=== PATIENT | male | born 1945 | race Caucasian/White ===

== ENCOUNTER → 2017-02-24 | Outpatient (CLI) | payer MEDICARE, OTHER ==
[~2017-02-24] MED LIST: ASPIRIN PO; B COMPLEX1 EACH PO; CERTAGEN PO; COZAAR25 MG PO; FLOMAX0.4 MG PO; GLUCOPHAGE500 MG PO; HYDROCHLOROTH12.5 M1 PO; LISINOPRIL PO; MULTIVITAMINS1 EAC4 PO; PRAVASTATIN SOD40 MG PO; TOPROL XL PO; ZOCOR PO
--- NOTE | ~2017-02-24 | NM4 ---
[facility] A Service of [facility] RADIOLOGY TEXT RESULTS PATIENT: SEAN HARKINS LOCATION: [facility] : 45 UNIT #: [id number] AGE: [address]: Juan Charles DPM SEX: M ORDER DR: [id number] [facility] [address] [place], [place] [address] [id number] O MR#: [id number] Acc #: [id number] NAME: SEAN HARKINS : 1945 SEX: M STUDY DATE/TIME: 02/24/2017 10:11 UNIT: [facility] ROOM: STUDY DESCRIPTION: CA Bone or Joint 3 Phase Study Attending Physician: Juan Charles D.P.M. Referring Physician: Juan Charles D.P.M. Ordering Physician: Juan Charles D.P.M. Primary Care Physician: Dimitris Sorensen M.D. MEDICAL IMAGING REPORT This report is preliminary unless electronic signature is present EXAM Three-phase bone scan HISTORY 71-year-old male ulcer right great toe plantar surface appeared 1 month ago. Concern for osteomyelitis. COMPARISON There are no correlative images available for comparison FINDINGS Three-phase bone scan was performed over the feet and ankles following the intravenous administration of 27.5 mCi technetium 99m MDP. Examination demonstrates increased flow to the right great toe. Immediate blood pool and delayed phase images also demonstrates increased uptake in the distal aspect of the great toe. With the clinical presentation findings are compatible with underlying osteomyelitis. Minimal degenerative uptake also noted within the midfoot bilaterally. IMPRESSION Abnormal three-phase bone scan demonstrating three-phase positive uptake within the great toe in the setting of ulcer and infection. Findings will be compatible with osteomyelitis. Dictated by... Sabina Babb M.D. THIS IS AN ELECTRONICALLY VERIFIED REPORT Sabina Babb M.D. at 02/25/2017 4:04 PM ANNA/sherlyn TD: 02/24/2017 19:20 JOB #: [id number] [facility] A Service of [facility] RADIOLOGY TEXT RESULTS PATIENT: SEAN HARKINS [id number] : [birth year] UNIT #: [id number] AGE: [address]: Juan Charles DPM SEX: M ORDER DR: MEDICAL IMAGING REPORT Page 1 of 1 COPY
== END | disposition home or self-care (01) ==
LOC: CNUC 09:19
DX: M86.8X7 Other osteomyelitis, ankle and foot (principal); R94.8 Abnormal results of function studies of other organs and systems
CPT/HCPCS: 78315; A9503

== ENCOUNTER → 2017-03-02 | Outpatient (CLI) | payer MEDICARE, OTHER ==
[2017-03-02 14:31] LABS: BASOPHIL% 0.6 % (0-2.5); EOSINOPHIL# 0.3 X10e3 (0-0.7); EOSINOPHIL% 3.8 % (0.0-7.0); HEMATOCRIT 37.3 % (38.0-50.0); HEMOGLOBIN 13.2 gm/dL (13.0-16.0); LYMPHOCYTE# 2.8 X10e3 (1.0-3.5); LYMPHOCYTE% 36.2 % (17.0-45.0); MEAN CELL VOLUME 95.6 FL (83-96); MEAN CORPUSCULAR HEMOGLOBIN 33.8 PG (28-34); MEAN CORPUSCULAR HGB CONC 35.4 g/dL (30-36); MEAN PLATELET VOLUME 7.5 FL (6.5-11.5); MONOCYTE# 0.5 X10e3 (0-1.0); MONOCYTE% 6.4 % (3.0-12.0); NEUTROPHIL# 4.1 X10e3 (1.5-7.1); PLATELET COUNT 253 X10e3 (140-420); RED CELL DISTRIBUTION WIDTH 12.3 % (11.0-15.5); WHITE BLOOD COUNT 7.8 X10e3 (4.0-10.5)
[2017-03-02 14:35] LABS: DIFF IND NO
[2017-03-02 15:09] LABS: BILIRUBIN,TOTAL 0.7 mg/dL (0.2-2.0); BUN/CREATININE RATIO 11.11; CALCIUM SERUM 9.5 mg/dL (8.4-10.2); CREATININE SERUM 0.9 mg/dL (0.6-1.4); GLOM FILT RATE Estimated 85.6 mL/min (>60); POTASSIUM 4.2 mmol/L (3.5-5.1); PROTEIN TOTAL SERUM 7.6 g/dL (6.0-8.3)
== END | disposition home or self-care (01) ==
LOC: CLAB 13:29
PROVIDERS: Podiatrist Foot & Ankle Surgery
DX: L03.031 Cellulitis of right toe (principal)
CPT/HCPCS: 36415; 80053; 85025

== ENCOUNTER → 2017-03-26 | Outpatient (CLI) | payer MEDICARE, OTHER | END | disposition home or self-care (01) | LOC: CSSDAY 09:00 | DX: L03.031 Cellulitis of right toe (principal); Z22.322 Carrier or suspected carrier of Methicillin resistant Staphylococcus aureus | CPT/HCPCS: 96365; 96366; J2407; J7060 ==